=== PATIENT | male | born 1965 | race Caucasian/White ===

== ENCOUNTER → 2021-11-11 14:08 | Outpatient (BNVA) | payer OTHER, SELFPAY | PROVIDERS: Family Provider Nurse Practitioner Family; PCP Family Medicine; Visit Provider Family Medicine | DX: E16.2 Hypoglycemia, unspecified (principal); I10 Essential (primary) hypertension; R00.0 Tachycardia, unspecified; R20.9 Unspecified disturbances of skin sensation | CPT/HCPCS: 80053; 80061; 82607; 83036; 84443; 85025 ==

== ENCOUNTER 2021-11-18 15:00 | Outpatient (CLI) | payer OTHER, SELFPAY | END 2021-11-18 15:01 | disposition home or self-care (01) | LOC: SLEEP 11-19 08:36 | PROVIDERS: Family Provider Nurse Practitioner Family; PCP Family Medicine; Visit Provider Family Medicine | DX: G47.33 Obstructive sleep apnea (adult) (pediatric) (principal); G47.34 Idiopathic sleep related nonobstructive alveolar hypoventilation; R53.83 Other fatigue; E16.2 Hypoglycemia, unspecified; I10 Essential (primary) hypertension; R00.0 Tachycardia, unspecified; R20.9 Unspecified disturbances of skin sensation; R06.83 Snoring | CPT/HCPCS: G0399 ==